=== PATIENT | male | born 1995 | race Caucasian/White ===

== ENCOUNTER 2016-05-27 00:11 | Emergency (ER) ==
[2016-05-27] MEDS ORDERED: ASPIRIN PO STA (00:21)
--- NOTE | 2016-05-27 00:30 | PROVIDER DOCUMENTATION ---
HPI-Chest Pain - General Source: patient - History of Present Illness-CP Location: reports: substernal Chest Pain Radiation: reports: shoulders Quality of Pain: reports: sharp Severity in ED: mild Onset/Duration: 1-3 hours ago Timing: still present Associated Symptoms: reports: shortness of breath Similar Symptoms Previously?: Yes Recently Seen Here or By Another Healthcare Provider: No <Sirisha Brody - Last Filed: 05/27/16 00:36> <Zane Sellers - Last Filed: 05/27/16 01:13> - General Chief Complaint: Chest Pain Stated Complaint: CHEST PAIN Time Seen by Provider: 05/27/16 00:23 Allergies/Adverse Reactions: Patient Allergies Allergy/AdvReac Type Severity Reaction Status Date / Time mold Allergy Unknown Verified 05/27/16 00:20 Home Medications: Home Medication List Medication Instructions Recorded Confirmed Last Taken Type No Home Medications 09/26/14 07/10/15 Unknown History - History of Present Illness-CP Nature of Presenting Problem: 20 year old M presents to the ED with a cc of chest pain with an onset of 2330. Pt c/o pain with breathing. Pt was told last May that he had an irregular heart rate. Pt states that he was unable follow up with the sizing machine operator and have the tran monitor done due to no insurance. PT also c/o shortness of breath. (Sirisha Brody) Review of Systems - Adult - REVIEW OF SYSTEMS - ADULT Constitutional: denies: fever Eyes: denies: no symptoms reported Ears, Nose, Mouth & Throat: reports: no symptoms reported Cardiovascular: reports: chest pain. denies: palpitations Respiratory: reports: shortness of breath. denies: cough Gastrointestinal: denies: abdominal pain, diarrhea, nausea, vomiting Genitourinary: reports: no symptoms reported Musculoskeletal: reports: no symptoms reported Integumentary: reports: no symptoms reported Neurological: reports: no symptoms reported Psychiatric: reports: no symptoms reported Endocrine: reports: no symptoms reported Hematologic/Lymphatic: reports: no symptoms reported Allergic/Immunologic: reports: no symptoms reported All Other Systems: Reviewed and Negative <Sirisha Brody - Last Filed: 05/27/16 00:36> Past History - Adult - PAST MEDICAL HISTORY-ADULT Review of Records: reports: Nursing Assessment Review, Medications Reviewed Major Childhood Illnesses: reports: denies history Cardiovascular: reports: denies history Respiratory: reports: denies history Gastrointestinal: reports: denies history Obstetrical/Gynecological: reports: denies history Genitourinary: reports: denies history Musculoskeletal: reports: denies history Neurological: reports: denies history Psychiatric: reports: anxiety Endocrine/Immune: reports: denies history Other Conditions: reports: denies history - PRIOR SURGERIES/PROCEDURES Surgical/Procedure History: reports: none - PRIOR HOSPITALIZATIONS Prior Hospitalizations: reports: none - IMMUNIZATION STATUS Childhood Immunizations: See Nurse Assessment Flu Vaccine: See Nurse Assessment - FAMILY HISTORY Family History: reviewed, not pertinent - SOCIAL HISTORY Smoking: cigarettes, less than 1 pack/day Provider spent 3-5 mins advising pt. on dangers of tobacco.: Discussed manners to quit use, and f/u contacts for add'l counseling. Substance Use: none/never Alcohol Use Frequency: never <Sirisha Brody - Last Filed: 05/27/16 00:36> Physical Exam-General - PHYSICAL EXAM-ADULT Initial Vital Signs Reviewed: Yes - CONSTITUTIONAL General Appearance: appears well, alert, no apparent distress - RESPIRATORY Respiratory: chest non-tender, normal breath sounds, wheezing - CARDIOVASCULAR Cardiovascular: normal peripheral pulses, regular rate, rhythm, no edema - GASTROINTESTINAL (ABDOMEN) Abdominal Exam: non tender, soft - MUSCULOSKELETAL Extremity: normal inspection - SKIN Integumentary: normal color, normal turgor, warm/dry - PSYCHIATRIC Psych/Mental Status: normal mood/affect, normal thought content, normal thought process, oriented x 3 <Sirisha Brody - Last Filed: 05/27/16 00:36> Progress - EKG 1 Time of EKG reading by physician:: 00:27 EKG Read and Signed by:: Zane Sellers EKG Interpretation (*Must complete 3 of following elements*): Normal Rate: 104 Rhythm: sinus tachycardia [place]: normal <Sirisha Brody - Last Filed: 05/27/16 00:36> - EKG 1 Time of EKG reading by physician:: 00:28 EKG Read and Signed by:: Zane Sellers Rate: 104 Rhythm: sinus tach [place]: normal QRS: normal [place] Interval: normal Prior EKG Comparison: unchanged from prior - XRAY 1 XRAY Study: Chest (nad) <Zane Sellers - Last Filed: 05/27/16 01:13> Departure <Sirisha Brody - Last Filed: 05/27/16 00:36> - Departure Time of Disposition Order: 01:15 Certified Medical Emergency: Emergent <Zane Sellers - Last Filed: 05/27/16 01:13> - Departure DIAGNOSIS: Pleuritic chest pain, Palpitations, Noncompliance with diagnostic testing, Tobacco abuse Disposition: HOME 01 Condition: Stable Additional Instructions: Stop smoking, take medication as prescribed. followup with sizing machine operator as instructed for further evaluation and outpatient holter monitoring. tylenol and motrin for pain You have been treated by a care provider in the Emergency Department. These instructions are being provided to you so you can have an understanding of how to care for yourself upon discharge. Upon discharge from the Emergency Department, you are responsible for making arrangements for follow-up care by a physician of your choice. Take all prescribed medications as directed. Return to the Emergency Department immediately for any new or worsening symptoms. You may call the Physician Referral phone number at [phone] to obtain a list of Physicians who are taking new patients. Additional Instructions: We have examined and treated you today on an emergency basis only. This was not a substitute for, or an effort to provide, complete medical care. In most cases , you must let your doctor check you again. Tell your doctor about any new or lasting problems. We cannot recognize and treat all injuries or illnesses in one Emergency Department visit. If you had special tests, such as EKGs or X- rays, will be reviewed by radiologist and will call you if there are any new suggestions Follow up with primary care provider in 1 to 2 days if no improvement. If you do not have a primary care provider, you need to choose one as soon as possible. Take medicines as prescribed. Monitor for any side effects or adverse events from medications. If any side effect, adverse event or rash develops, or if you suspect any other adverse reaction to the medication, then discontinue the medication immediately and contact clinic /PCP or go to the nearest ER. Narcotic meds / sedative meds instruction - pt advised not to drive, operate any machinery or go into water after taking meds as it may impair mental ability to react to the situation in a appropriate manner. Continue other current medicines. Follow up with PCP within 24-48 hrs, or sooner if symptoms worsen or fail to improve. Patient / pts guardian verbalizes understanding of treatment plan, medication, and side effects and agrees with treatment plan. Patient leaves ER/Urgent Care clinic in stable condition and ambulatory state. Return to ER as needed. Discharge instructions reviewed verbally and given to patient in written form. Referrals: None,PCP [Primary Care Provider] - Yaron Duenas MD [STAFF PHYSICIAN] - Attestation - Scribe Verification/Attestation Scribe:: Sirisha Brody Acting as Scribe for:: Zane Sellers Scribe documention review:: This chart was documented by a scribe and accurately reflects the service the provider performed and the decisions made by the provider. <Sirisha Brody - Last Filed: 05/27/16 00:36> Physician Attestation - Physician Attestation I, the provider, attest to the following statement:: Zane Sellers Physician documentation Attestation:: This documentation recorded by the scribe accurately reflects the service I personally performed and the decisions made by me. <Sirisha Brody - Last Filed: 05/27/16 00:36>
[2016-05-27] MEDS ORDERED: ACCUNEB INH ONE (00:34)
[2016-05-27] MEDS ORDERED: ACCUNEB ONE (00:37)
[2016-05-27 01:37] VITALS: BP 118/78
--- NOTE | 2016-05-27 05:08 | EKG Report ---
Test Performed on : 05/27/2016 00:27:48 AM Test Reason : CHEST PAIN Blood Pressure : / mmHG Vent. Rate : 104 BPM Atrial Rate : 104 BPM P-R Int : 176 ms QRS Dur : 096 ms QT Int : 318 ms P-R-T Axes : 042 083 040 degrees QTc Int : 418 ms Sinus tachycardia. Otherwise normal ECG When compared with ECG of 10-JUL-2015 00:29, No significant change was found Unconfirmed Result
--- NOTE | 2016-05-27 08:51 | Diag Imaging Result Document ---
PROCEDURE NAME: CHEST-2 VIEWS - 05/27/2016 FRONTAL AND LATERAL CHEST, TWO VIEWS: COMPARISON: 03/02/2015. FINDINGS: The lungs are well expanded. The heart is not enlarged. The vessels are not distended. No pneumonia. No pleural effusions. No free air beneath the diaphragm. IMPRESSION: No acute abnormality.
== END 2016-05-27 01:37 | disposition home or self-care (01) ==
LOC: P.ED 00:11
DX: R00.2 Palpitations (principal); R07.81 Pleurodynia; Z91.19 Patient's noncompliance with other medical treatment and regimen; F17.210 Nicotine dependence, cigarettes, uncomplicated; Z71.6 Tobacco abuse counseling; R06.2 Wheezing; R06.02 Shortness of breath
CPT/HCPCS: 71020; 93005; 94640; 99283